=== PATIENT | female | born 1940 | race Caucasian/White ===

== ENCOUNTER 2018-07-02 13:15 | Emergency (ER) | payer MEDICARE ==
[~2018-07-02] VITALS: Ht 154.9 cm; Wt 50.3 kg
[2018-07-02] MEDS ORDERED: PHEN100C PO ×2 (13:50→13:51)
[2018-07-02] MEDS ORDERED: ROPI1TAB PO (13:52)
[2018-07-02] MEDS ORDERED: GABA-585 PO (13:52)
[2018-07-02] MEDS ORDERED: ASPI-630 PO (13:53)
--- NOTE | 2018-07-02 14:06 | PHYS DOC ---
Past History Past Medical History: Seizure, Other Alcohol Use: None Drug Use: None Adult General Chief Complaint Chief Complaint: head injury HPI HPI Patient is a 77 year old female who presents with complaining of a fall and laceration of her scalp. Patient states she tripped on her dog's leash and had a fall and landed on right side of her head and had scalp laceration. Patient complaining of headache without focal neuro deficit. Patient ambulated with help of her daughter to ER. Patient's daughter who is a trauma nurse states she had 1 minute loss of consciousness without seizure activity and was confused for about 20 minutes after the fall. 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 Patient is up-to-date with tetanus immunization. Review of Systems Review of Systems Constitutional: Denies fever or chills [] Eyes: Denies change in visual acuity, redness, or eye pain [] HENT: Denies nasal congestion or sore throat [] Respiratory: Denies cough or shortness of breath [] Cardiovascular: No additional information not addressed in HPI [] GI: Denies abdominal pain, nausea, vomiting, bloody stools or diarrhea [] : Denies dysuria or hematuria [] Musculoskeletal: Denies back pain or joint pain [] Integument: Denies rash or skin lesions [] Neurologic: Reports headache, denies focal weakness or sensory changes [] Endocrine: Denies polyuria or polydipsia [] All other systems were reviewed and found to be within normal limits, except as documented in this note. Allergies Allergies Allergies Coded Allergies Type Severity Reaction Last Updated Verified levetiracetam Adverse Reaction Unknown 07/02/18 Yes Physical Exam Physical Exam Constitutional: Well nourished, mild distress, non-toxic appearance. [] HENT: Normocephalic, 2 cm laceration of right parietal scalp, bilateral external ears normal, oropharynx moist, no oral exudates, nose normal. [] Eyes: PERRLA, EOMI, conjunctiva normal, no discharge. [] Neck: Normal range of motion, no tenderness, supple, no stridor. [] Cardiovascular:Heart rate regular rhythm, no murmur [] Lungs & Thorax: Bilateral breath sounds clear to auscultation [] Abdomen: Bowel sounds normal, soft, no tenderness, no masses, no pulsatile masses. [] Skin: Warm, dry, no erythema, no rash. [] Back: No tenderness, no CVA tenderness. [] Extremities: No tenderness, no cyanosis, no clubbing, ROM intact, no edema. [] Neurologic: Alert and oriented X 3, normal motor function, normal sensory function, no focal deficits noted. [] Psychologic: Affect normal, judgement normal, mood normal. [] Current Patient Data Vital Signs Vital Signs Date Time Temp Pulse Resp B/P (MAP) Pulse Ox O2 Delivery O2 Flow Rate FiO2 07/02/18 13:15 98.8 94 20 97 Room Air EKG EKG [] Radiology/Procedures Radiology/[place] [address] IMAGING REPORT Signed PATIENT: SUSANA OLVERA ACCOUNT: [id number] : 1940 LOCATION: ER AGE: 77 SEX: F EXAM STATUS: PRE ER ORD. PHYSICIAN: VALENTIN LANE MD REASON: fall PROCEDURE: CT HEAD AND CERVICAL SPINE WO Examination: CT head and cervical spine without contrast CT HEAD INDICATION: FALL, LACERATION TO RIGHT SIDE OF HEAD COMPARISON: None Available. Exposure: One or more of the following individualized dose reduction techniques were utilized for this examination: 1. Automated exposure control 2. Adjustment of the mA and/or kV according to patient size 3. Use of iterative reconstruction technique TECHNIQUE: 5 mm contiguous axial images were obtained from the skull base to the vertex in both bone and soft tissue algorithm. FINDINGS: There is no evidence of midline shift. There is a tiny parasagittal hyperdensity measuring 5 mm on the left abutting the falx could be a small meningioma. A ventricular shunt catheter identified with the tip projecting in the left lateral ventricle. There is a faint hyperdensity identified in the subdural left cerebral hemisphere region in the left frontoparietotemporal region with the greatest thickness measuring 6 mm likely subdural bleed. There is a subtle hyperdensity identified in the subcutaneous region of the right frontoparietal region with thickness measuring 3 mm likely a small focus of subdural bleed The visualized lateral ventricles, third ventricle, fourth ventricle appropriate for age. The basal cisterns are uneffaced. Complete opacification of the right maxillary sinus likely sinus disease. CT CERVICAL SPINE INDICATION: FALL, LACERATION TO RIGHT SIDE OF HEAD COMPARISON: None Available. Technique: 2.5 mm contiguous axial images were obtained from the skull base through the cervicothoracic junction in both bone and soft tissue algorithm. Additional sagittal and coronal reconstructions were also performed. FINDINGS: Vertebral body height and alignment are maintained. Cervical lordosis is preserved. The lateral masses of C1 are aligned upon C2. No fractures identified. The bony canal is patent throughout. Moderate intervertebral disc height loss identified in the cervical spine particularly at C5-C6, C6-C7 vertebral levels. The bilateral facets are well aligned. The paraspinous soft tissues are unremarkable. Visualized intracranial contents are unremarkable. Lung apices are clear. IMPRESSION: 1. Left frontoparietotemporal subdural bleed with the greatest thickness measuring 6 mm. 2. Right frontoparietal subdural bleed measuring 3 mm in thickness. 3. Tiny 5 mm hyperdensity identified in the left parafalcine region nonspecific could be a small meningioma. 4. No acute fracture cervical spine. Correlate clinically. 5. Moderate degenerative changes cervical spine. Dr. Lane in ER was informed at time of dictation. Electronically signed by: Roman Doran MD (07/02/2018 2:02 PM) [id number] DICTATED AND SIGNED BY: ROMAN DORAN MD DATE: 07/02/18 [id number] CC: VALENTIN LANE MD ~ Course & Med Decision Making Course & Med Decision Making Pertinent Labs and Imaging studies reviewed. (See chart for details) Evaluation of patient in ER showed 77-year-old male patient with intracranial shunt brought in because of a fall and 1 minute loss of consciousness and is Laceration. CT showed bilateral small subdural hematoma. Scalp laceration was repaired with Dermabond. Patient requesting transferring to [facility]. accepted transfer to [facility] on behalf of Dr. Rosales at 1410. Patient rated her pain moderate and did not want to have pain medication while she was in ER. Dragon Disclaimer Dragon Disclaimer This electronic medical record was generated, in whole or in part, using a voice recognition dictation system. Departure Departure: Impression: Primary Impression: Subdural hemorrhage following injury Additional Impressions: Scalp laceration Fall Loss of consciousness associated with intracranial injury Disposition: 05 TRANSFER OTHER ([facility] at 1410) Condition: GUARDED Laceration Repair Lac Repair Indication: Scalp laceration Procedure: The patient was placed in the appropriate position and 2 cm irregular laceration of right parietal scalp was repaired with Dermabond with complaint of bleeding. Total repaired wound length: 2 cm Other Items: None The patient tolerated the procedure well. Complications: None. Problem Qualifiers VALENTIN LANE MD Jul 02, 2018 14:06
[2018-07-02 14:26] LABS: BASO % 1 % (0-3); EOS # 0.1 x10^3/uL (0.0-0.7); EOS % 2 % (0-3); HEMATOCRIT 39.4 % (36.0-47.0); HEMOGLOBIN 13.5 g/dL (12.0-15.5); LYMPH % 18 % (24-48); MEAN CORPUSCULAR HEMOGLOBIN 34 pg (25-35); MEAN CORPUSCULAR HGB CONC 34 g/dL (31-37); MEAN CORPUSCULAR VOLUME 98 fL (79-100); MONO # 0.5 x10^3/uL (0.0-1.1); MONO % 9 % (0-9); NEUT % 70 % (31-73); PLATELET COUNT 266 x10^3/uL (140-400); RED BLOOD COUNT 4.02 x10^6/uL (3.50-5.40); RED CELL DISTRIBUTION WIDTH 13.4 % (11.5-14.5); WHITE BLOOD COUNT 5.7 x10^3/uL (4.0-11.0)
[2018-07-02 14:46] LABS: PHENY 15.1 mcg/mL (10.0-20.0)
[2018-07-02 14:50] LABS: ALBUMIN 3.8 g/dL (3.4-5.0); ALBUMIN/GLOBULIN RATIO 1.1 (1.0-1.7); CALCIUM 8.8 mg/dL (8.5-10.1); CREATININE 0.8 mg/dL (0.6-1.0); GFR 69.2; POTASSIUM 3.9 mmol/L (3.5-5.1); TOTAL BILIRUBIN 0.2 mg/dL (0.2-1.0); TOTAL PROTEIN 7.4 g/dL (6.4-8.2)
[2018-07-02 14:51] VITALS: BP 137/66
== END 2018-07-02 15:15 | disposition short-term general hospital (02) ==
LOC: ER 13:15
DX: S06.5X1A Traumatic subdural hemorrhage with loss of consciousness of 30 minutes or less, initial encounter (principal); S01.01XA Laceration without foreign body of scalp, initial encounter; Z88.8 Allergy status to other drugs, medicaments and biological substances; W01.0XXA Fall on same level from slipping, tripping and stumbling without subsequent striking against object, initial encounter; Y93.89 Activity, other specified; Y92.89 Other specified places as the place of occurrence of the external cause; Y99.8 Other external cause status
CPT/HCPCS: 12001; 36415; 70450; 72125; 80053; 80185; 85025; 85610; 85730; 99285